=== PATIENT | female | born 1990 | race Caucasian/White ===

== ENCOUNTER 2016-11-13 23:04 | Emergency (ER) | payer BC, MEDICAID, OTHER ==
[2016-11-13 23:05] VITALS: BMI 38.2
[2016-11-13 23:08] VITALS: BP 125/71; PULSE 77; RESP 16; TEMP 98.2; O2SAT 100
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
== END 2016-11-14 00:10 | disposition home or self-care (01) ==
LOC: H.ER 23:04
DX: S39.012A Strain of muscle, fascia and tendon of lower back, initial encounter (principal); V43.52XA Car driver injured in collision with other type car in traffic accident, initial encounter; Y92.410 Unspecified street and highway as the place of occurrence of the external cause
CPT/HCPCS: 72100; 96372; 99282; J1885

== ENCOUNTER 2017-07-31 22:10 | Emergency (ER) | payer MEDICAID ==
[2017-07-31 22:10] VITALS: BMI 38.2
[2017-07-31 22:16] VITALS: TEMP 98.8; O2SAT 100
--- NOTE | 2017-07-31 22:27 | ED PDOC ---
HPI: General Adult Time Seen by Provider: 07/31/17 22:24 Chief Complaint (Nursing): Flu-like Symptoms Chief Complaint (Provider): body aches, dry cough History Per: Patient Additional Complaint(s): 27-year-old female presents to emergency department with body aches, subjective fever, chills and dry cough that started earlier this morning. Patient states her youngest daughter is sick with URI symptoms. Patient denies any chest pain or shortness of breath. She did not take anything for pain earlier. Patient also had 2 episodes of watery, nonbloody diarrhea and complains of nausea but denies any vomiting. No associated abdominal pain. Past Medical History Reviewed: Historical Data, Nursing Documentation, Vital Signs Vital Signs: Last Vital Signs Temp 98.8 F 07/31/17 22:16 Pulse 118 H 07/31/17 22:16 Resp 16 07/31/17 22:16 BP 121/72 07/31/17 22:16 Pulse Ox 100 07/31/17 22:28 - Medical History PMH: No Chronic Diseases - Surgical History Surgical History: Cholecystectomy Other surgeries: gastric bypass - Family History Family History: States: No Known Family Hx - Living Arrangements Living Arrangements: With Family - Social History Current smoker - smoking cessation education provided: No Alcohol: None Drugs: Denies - Home Medications Home Medications: Ambulatory Orders Medication Instructions Recorded Acetaminophen [Acetaminophen Extra 500 mg PO Q4 #30 tablet 01/09/16 Strength] Famotidine [Pepcid] 20 mg PO BID PRN #30 tab 01/09/16 Cyclobenzaprine [Cyclobenzaprine 10 mg PO TID PRN #20 tab 11/13/16 HCl] Naproxen [Naprosyn] 500 mg PO BID #20 tab 11/13/16 Acetaminophen [Tylenol 325mg tab] 650 mg PO Q4 PRN #1 bottle 07/31/17 Ibuprofen [Motrin Tab] 800 mg PO Q8 PRN #20 tab 07/31/17 Oseltamivir Phosphate [Tamiflu] 75 mg PO BID #9 capsule 07/31/17 - Allergies Allergies/Adverse Reactions: Allergies Allergy/AdvReac Type Severity Reaction Status Date / Time No Known Allergies Allergy Verified 11/13/16 23:06 Review of Systems ROS Statement: Except As Marked, All Systems Reviewed And Found Negative Constitutional: Positive for: Fever (subjective), Chills, Other (body aches) Cardiovascular: Negative for: Chest Pain Respiratory: Positive for: Cough (dry). Negative for: Shortness of Breath Gastrointestinal: Positive for: Nausea, Diarrhea. Negative for: Vomiting, Abdominal Pain Genitourinary Female: Negative for: Dysuria Neurological: Positive for: Headache. Negative for: Dizziness Physical Exam - Reviewed Nursing Documentation Reviewed: Yes Vital Signs Reviewed: Yes - Physical Exam Appears: Positive for: Well, Non-toxic, No Acute Distress Skin: Negative for: Rash Eye Exam: Positive for: Normal appearance ENT: Positive for: Normal ENT Inspection Neck: Positive for: Normal Cardiovascular/Chest: Positive for: Regular Rate, Rhythm Respiratory: Positive for: Normal Breath Sounds Gastrointestinal/Abdominal: Positive for: Soft. Negative for: Tenderness, Distended, Guarding, Rebound Extremity: Positive for: Normal ROM Neurologic/Psych: Positive for: Alert, Oriented, Gait (steady) - Laboratory Results Urine POC: Negative - ECG O2 Sat by Pulse Oximetry: 100 Pulse Ox Interpretation: Normal - Other Rad CXR X-Ray: Interpreted by Me, Viewed By Me X-Ray Interpretation: no acute finding Medical Decision Making Medical Decision Makin27 year old with flu like symptoms Plan: CXR PO tylenol and motrin PO tamiflu Patient states body aches are improved after medications given in ED. Patient is aware of all diagnostic testing results, all questions answered. Prescriptions given for Motrin and Tylenol. Patient treated empirically with Tamiflu given clinical presentation. Advised fluids, rest and follow-up with clinic or PMD in 2-3 days. Disposition - Clinical Impression Clinical Impression: Influenza-like symptoms - Patient ED Disposition Is Patient to be Admitted: No Counseled Patient/Family Regarding: Studies Performed, Diagnosis, Need For Followup, Rx Given - Disposition Referrals: [facility] [Outside] Disposition: Routine/Home Disposition Time: 23:12 Condition: STABLE Additional Instructions: TAKE RX MEDS DIRECTED. REST AND DRINK PLENTY OF FLUIDS. FOLLOW UP WITH PRIMARY CARE DOCTOR OR WITH CLINIC IN 2-3 DAYS. Prescriptions: Acetaminophen [Tylenol 325mg tab] 650 mg PO Q4 PRN #1 bottle PRN Reason: Pain, Moderate (4-7) Ibuprofen [Motrin Tab] 800 mg PO Q8 PRN #20 tab PRN Reason: Pain, Moderate (4-7) Oseltamivir Phosphate [Tamiflu] 75 mg PO BID #9 capsule Instructions: Flu, Adult (DC) Forms: [employer] (Armenian)
[2017-07-31 23:57] VITALS: BP 128/78; PULSE 80; RESP 18
--- NOTE | 2017-08-01 08:22 | RAD ---
HISTORY: cough COMPARISON: No prior. TECHNIQUE: Chest PA and lateral FINDINGS: LUNGS: No active pulmonary disease. PLEURA: No significant pleural effusion identified. No pneumothorax apparent. CARDIOVASCULAR: Normal. OSSEOUS STRUCTURES: No significant abnormalities. VISUALIZED UPPER ABDOMEN: Normal. OTHER FINDINGS: None. IMPRESSION: No active disease.
== END 2017-07-31 23:36 | disposition home or self-care (01) ==
LOC: H.ER 22:10
DX: J11.1 Influenza due to unidentified influenza virus with other respiratory manifestations (principal)